=== PATIENT | female | born 1990 | race Caucasian/White ===

== ENCOUNTER 2019-05-13 19:00 | Emergency (ER) | payer MEDICAID, OTHER ==
[2019-05-13] MEDS ORDERED: Ketorolac 60 MG/2 ML SDV IM ONE (20:50)
--- NOTE | 2019-05-13 21:25 | EDM.PDOC ---
ED HPI GENERAL MEDICAL PROBLEM - General Chief Complaint: Lower Extremity Injury/Pain Stated Complaint: HURT ANKLE Time Seen by Provider: 05/13/19 19:40 Source of Information: Reports: Patient, Family History Limitations: Reports: No Limitations - History of Present Illness INITIAL COMMENTS - FREE TEXT/NARRATIVE: Patient presents today with concern for an ankle injury this afternoon. She was walking, caught her foot under her and it twisted and she fell on hard pavement. Unable to walk on it since that happened. No other injuries in her fall, doesn't really want to move her ankle much. Hasn't taken anything. Denies any numbness or tingling in her foot. Does not have any knee or upper leg pain. Previous history of a right ankle fracture which occurred when she was between ages of 10 and 12. Otherwise healthy with no regular medications Or medical problems. 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: Neurological History: Reports: Migraines Endocrine/Metabolic History: Reports: Other (See Below) Other Endocrine/Metabolic History: thyroid disorder, glaucoma, maculalar degeneration - Infectious Disease History Infectious Disease History: Reports: Chicken Pox - Past Surgical History HEENT Surgical History: Reports: Other (See Below) Social & Family History - Family History Family Medical History: Noncontributory HEENT: Reports: Cataract OBGYN: Reports: Endocrine/Metabolic: Reports: Diabetes, Type I - Tobacco Use Smoking Status *Q: Current Every Day Smoker - Caffeine Use Caffeine Use: Reports: Soda - Living Situation & Occupation Living situation: Reports: Alone Occupation: Disabled Review of Systems - Review of Systems Review Of Systems: ROS reveals no pertinent complaints other than HPI. ED EXAM, GENERAL - Physical Exam Exam: See Below Free Text/Narrative:: Gen.: Alert, pleasant no acute distress. An abrasion is noted to the anterior side of her left knee. Her left leg otherwise appears normal and her foot is normal. There is a slight abrasion noted on the lateral side of her right foot. Right ankle exam shows significant lateral swelling. Active ROM of toes and ankle is limited due to pain but present. There is no tenderness over the medial malleolus, but significant tender over the lateral malleolus. She does not have any laxity on anterior posterior drawer testing. There is no tenderness in the foot except very slight over the fifth metatarsal head. She has no tenderness with squeeze of tibia/fibula. dorsal pedis pulses present and sensation is intact throughout the foot. Course - Vital Signs Text/Narrative:: X-rays obtained, not clear view of the mortise and talar but no fracture seen by my read. Patient is neurovascularly intact with no ligamentous laxity. Requested official radiology read -- suspect arthritis from former ankle fracture is contributing. toradol ordered Last Recorded V/S: Last Vital Signs Temp 37.2 C 05/13/19 19:00 Pulse 88 05/13/19 19:00 Resp 18 05/13/19 19:00 BP 145/56 H 05/13/19 19:00 Pulse Ox 97 05/13/19 19:00 - Orders/Labs/Meds Orders: Active Orders 24 hr Category Date Time Status Ankle Min 3V Rt [CR] Stat Exams 05/13/19 19:30 Taken Foot Comp Min 3V Rt [CR] Stat Exams 05/13/19 20:00 Taken Meds: Medications Discontinued Medications Generic Name Dose Route Start Last Admin Trade Name Jonathanq PRN Reason Stop Dose Admin Ketorolac Tromethamine 60 mg 05/13/19 20:50 05/13/19 22:30 Toradol IM 05/13/19 20:51 60 mg ONETIME ONE Administration - Re-Assessments/Exams Free Text/Narrative Re-Assessment/Exam: 05/14/19 pain improved after Toradol. Requested official radiology read but has not returned yet. They are requesting discharge, she is very uncomfortable with any dorsiflexion, so Yoni wrap was given and crutches and patient instructed to be nonweightbearing for a couple of days to see if she improves. Note provided for work as well. Will call if official radiology read returns concern for fracture in am. Departure - Departure Time of Disposition: 22:58 Disposition: Home, Self-Care 01 Condition: Good Clinical Impression: Ankle sprain - Discharge Information *PRESCRIPTION DRUG MONITORING PROGRAM REVIEWED*: Not Applicable *COPY OF PRESCRIPTION DRUG MONITORING REPORT IN PATIENT JESSICA: Not Applicable Instructions: Crutch Use, Adult, [id number], Ankle Sprain Referrals: Jevon Wray MD [Primary Care Provider] - Forms: ED Department Discharge Additional Instructions: Recommend use crutches for next 2-3 days. On day 4 you may try to bear weight on it and see how it feels. Yoni wrap and elevate during the day, ice is very helpful May take ibuprofen 3-4 tabs up to 3 times a day. Drink lots of water with this medication. May also take Tylenol with this if needed for pain. If still unable to bear weight on day 4, should be seen in walk-in clinic or PCP office for follow-up. IF it is slowly improving but not all the way better, should also be seen in clinic. Physical therapy is often very helpful with recover from an ankle injury - My Orders Last 24 Hours: My Active Orders 05/13/19 19:30 Ankle Min 3V Rt [CR] Stat 05/13/19 20:00 Foot Comp Min 3V Rt [CR] Stat - Assessment/Plan Last 24 Hours: My Active Orders 05/13/19 19:30 Ankle Min 3V Rt [CR] Stat 05/13/19 20:00 Foot Comp Min 3V Rt [CR] Stat
[2019-05-14 04:41] VITALS: BP 126/68; PULSE 77
== END 2019-05-13 23:10 | disposition home or self-care (01) ==
LOC: FB.ED 19:00
DX: S93.401A Sprain of unspecified ligament of right ankle, initial encounter (principal); S80.212A Abrasion, left knee, initial encounter; S90.811A Abrasion, right foot, initial encounter; F17.200 Nicotine dependence, unspecified, uncomplicated; W18.39XA Other fall on same level, initial encounter
CPT/HCPCS: 73610; 73630; 99283; J1885

== ENCOUNTER 2020-07-26 15:27 | Emergency (ER) | payer MEDICAID ==
[2020-07-26] MEDS ORDERED: Sodium Chloride 0.9% 10 ML Syringe FLUSH PRN (15:30)
[2020-07-26] MEDS ORDERED: Morphine 2 MG/ML SYRINGE IVPUSH ONE (15:31)
[2020-07-26] MEDS ORDERED: Ondansetron 4 MG/2 ML SDV IVPUSH ONE (15:31)
[2020-07-26] MEDS ORDERED: Ketorolac 30 MG/ML SDV IVPUSH ONE (15:31)
[2020-07-26] MEDS ORDERED: Sodium Chloride 0.9% 1,000 ML IV SCH (15:45)
[2020-07-26] MEDS ORDERED: Iopamidol 755 Mg/ML 100 ML Bottle IV ONE (15:51)
--- NOTE | 2020-07-26 17:08 | EDM.PDOC ---
ED HPI GENERAL MEDICAL PROBLEM - General Chief Complaint: Flank Pain Stated Complaint: RT PLANK PAIN Time Seen by Provider: 07/26/20 15:30 Source of Information: Reports: Patient History Limitations: Reports: No Limitations - History of Present Illness INITIAL COMMENTS - FREE TEXT/NARRATIVE: Patient presented to the ED because of Rt Flank pain which started this morning. The pain is sharp,8/10, with associated nausea and vomiting x 5. She has a history of kidney stone which she passed spontaneously. 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 Neurological History: Reports: Migraines Endocrine/Metabolic History: Reports: Other (See Below) Other Endocrine/Metabolic History: thyroid disorder, glaucoma, maculalar degeneration - Infectious Disease History Infectious Disease History: Reports: Chicken Pox - Past Surgical History HEENT Surgical History: Reports: Other (See Below) Social & Family History - Family History Family Medical History: Noncontributory HEENT: Reports: Cataract OBGYN: Reports: Endocrine/Metabolic: Reports: Diabetes, Type I - Caffeine Use Caffeine Use: Reports: Soda - Living Situation & Occupation Living situation: Reports: Alone Occupation: Disabled ED ROS GENERAL - Review of Systems Review Of Systems: See Below Constitutional: Reports: No Symptoms HEENT: Reports: No Symptoms Respiratory: Reports: No Symptoms Cardiovascular: Reports: No Symptoms Endocrine: Reports: No Symptoms GI/Abdominal: Reports: No Symptoms : Reports: Flank Pain Musculoskeletal: Reports: No Symptoms Skin: Reports: No Symptoms Neurological: Reports: No Symptoms Psychiatric: Reports: No Symptoms ED EXAM, RENAL/ - Physical Exam Exam: See Below Exam Limited By: No Limitations General Appearance: Alert, No Apparent Distress Eye Exam: Bilateral Eye: PERRL Ears: Normal External Exam, Normal Canal Nose: Normal Inspection, Normal Mucosa Throat/Mouth: Normal Inspection, Normal Lips, Normal Teeth Head: Atraumatic, Normocephalic Neck: Normal Inspection, Supple, Non-Tender, Full Range of Motion Respiratory/Chest: No Respiratory Distress, Lungs Clear, Normal Breath Sounds Cardiovascular: Normal Peripheral Pulses, Regular Rate, Rhythm, No Edema, No G allop GI/Abdominal: Normal Bowel Sounds, Soft, No Organomegaly, Other (RCVAT) Back Exam: Normal Inspection, Full Range of Motion Extremities: Normal Inspection, Normal Range of Motion Course - Vital Signs Text/Narrative:: Labs/CT abd-pelvis result was discussed with patient NS 1 L bolus Zofran 4 mg IV x1 Toradol 30 mg IV x1 Morphine 2 mg IV x1 - Orders/Labs/Meds Orders: Active Orders 24 hr Category Date Time Status Sodium Chloride 0.9% [Normal Saline] 1,000 ml Med 07/26/20 15:45 Active IV ASDIRECTED Sodium Chloride 0.9% [Saline Flush] Med 07/26/20 15:30 Active 10 ml FLUSH ASDIRECTED PRN Saline Lock Insert [OM.PC] Routine Oth 07/26/20 15:30 Ordered Medication Orders Sodium Chloride (Normal Saline) 1,000 mls @ 999 mls/hr IV ASDIRECTED RUSLAN Last Admin: 07/26/20 16:20 Dose: 999 mls/hr Documented by: YOSELIN Sodium Chloride (Saline Flush) 10 ml FLUSH ASDIRECTED PRN PRN Reason: Keep Vein Open Last Admin: 07/26/20 16:15 Dose: 10 ml Documented by: YOSELIN Labs: Laboratory Tests 07/26/20 07/26/20 07/26/20 Range/Units 15:40 15:40 15:40 WBC 13.6 H (4.5-12.0) X10-3/uL RBC 4.73 (3.23-5.20) x10(6)uL Hgb 14.7 (11.5-15.5) g/dL Hct 42.6 D (30.0-51.3) % MCV 90.1 (80-96) fL MCH 31.1 (27.7-33.6) pg MCHC 34.6 (32.2-35.4) g/dL RDW 11.6 (11.5-15.5) % Plt Count 280 (125-369) X10(3)uL MPV 8.8 (7.4-10.4) fL Neut % (Auto) 84.1 H (46-82) % Lymph % (Auto) 10.7 L (13-37) % Sherman % (Auto) 3.4 L (4-12) % Eos % (Auto) 1 (1.0-5.0) % Baso % (Auto) 1 (0-2) % Neut # (Auto) 11.3 H (1.6-8.3) # Lymph # (Auto) 1.5 (0.6-5.0) # Sherman # (Auto) 0.5 (0.0-1.3) # Eos # (Auto) 0.1 (0.0-0.8) # Baso # (Auto) 0.2 (0.0-0.2) # Sodium 141 (135-145) mmol/L Potassium 4.2 (3.5-5.3) mmol/L Chloride 101 (100-110) mmol/L Carbon Dioxide 30 (21-32) mmol/L BUN 12 (7-18) mg/dL Creatinine 1.0 (0.55-1.02) mg/dL Est Cr Clr Drug Dosing TNP Estimated GFR (MDRD) > 60 (>60) BUN/Creatinine Ratio 12.0 (9-20) Glucose 138 H (80-116) mg/dL Calcium 9.5 (8.6-10.2) mg/dL Total Bilirubin 0.5 (0.1-1.3) mg/dL AST 41 H (5-25) IU/L ALT 54 H (12-36) U/L Alkaline Phosphatase 94 (56-112) IU/L Total Protein 7.5 (6.0-8.0) g/dL Albumin 4.0 (3.5-5.2) g/dL Globulin 3.5 g/dL Albumin/Globulin Ratio 1.1 Amylase 43 (25-115) U/L Lipase 83 (73-393) U/L Urine Color (YELLOW) Urine Appearance (CLEAR) Urine pH (5.0-6.5) Ur Specific [place] (1.010-1.025) Urine Protein (NEGATIVE) mg/dL Urine Glucose (UA) (NORMAL) mg/dL Urine Ketones (NEGATIVE) mg/dL Urine Occult Blood (NEGATIVE) Urine Nitrite (NEGATIVE) Urine Bilirubin (NEGATIVE) Urine Urobilinogen (NEGATIVE) mg/dL Ur Leukocyte Esterase (NEGATIVE) Urine RBC (0-5) Urine WBC (0-5) Ur Squamous Epith Cells (NS,R,O) Urine Bacteria (NS) 07/26/20 Range/Units 16:30 WBC (4.5-12.0) X10-3/uL RBC (3.23-5.20) x10(6)uL Hgb (11.5-15.5) g/dL Hct (30.0-51.3) % MCV (80-96) fL MCH (27.7-33.6) pg MCHC (32.2-35.4) g/dL RDW (11.5-15.5) % Plt Count (125-369) X10(3)uL MPV (7.4-10.4) fL Neut % (Auto) (46-82) % Lymph % (Auto) (13-37) % Sherman % (Auto) (4-12) % Eos % (Auto) (1.0-5.0) % Baso % (Auto) (0-2) % Neut # (Auto) (1.6-8.3) # Lymph # (Auto) (0.6-5.0) # Sherman # (Auto) (0.0-1.3) # Eos # (Auto) (0.0-0.8) # Baso # (Auto) (0.0-0.2) # Sodium (135-145) mmol/L Potassium (3.5-5.3) mmol/L Chloride (100-110) mmol/L Carbon Dioxide (21-32) mmol/L BUN (7-18) mg/dL Creatinine (0.55-1.02) mg/dL Est Cr Clr Drug Dosing Estimated GFR (MDRD) (>60) BUN/Creatinine Ratio (9-20) Glucose (80-116) mg/dL Calcium (8.6-10.2) mg/dL Total Bilirubin (0.1-1.3) mg/dL AST (5-25) IU/L ALT (12-36) U/L Alkaline Phosphatase (56-112) IU/L Total Protein (6.0-8.0) g/dL Albumin (3.5-5.2) g/dL Globulin g/dL Albumin/Globulin Ratio Amylase (25-115) U/L Lipase (73-393) U/L Urine Color Yellow (YELLOW) Urine Appearance Cloudy (CLEAR) Urine pH 5.0 (5.0-6.5) Ur Specific [place] 1.030 H (1.010-1.025) Urine Protein Trace (NEGATIVE) mg/dL Urine Glucose (UA) Normal (NORMAL) mg/dL Urine Ketones Negative (NEGATIVE) mg/dL Urine Occult Blood Large H (NEGATIVE) Urine Nitrite Negative (NEGATIVE) Urine Bilirubin Negative (NEGATIVE) Urine Urobilinogen Normal (NEGATIVE) mg/dL Ur Leukocyte Esterase Negative (NEGATIVE) Urine RBC 30-40 H (0-5) Urine WBC 0-5 (0-5) Ur Squamous Epith Cells Moderate H (NS,R,O) Urine Bacteria Moderate H (NS) Meds: Medications Generic Name Dose Route Start Last Admin Trade Name Freq PRN Reason Stop Dose Admin Sodium Chloride 1,000 mls @ 999 mls/hr 07/26/20 15:45 07/26/20 16:20 Normal Saline IV 999 mls/hr ASDIRECTED RUSLAN Administration Sodium Chloride 10 ml 07/26/20 15:30 07/26/20 16:15 Saline Flush FLUSH 10 ml ASDIRECTED PRN Administration Keep Vein Open Discontinued Medications Generic Name Dose Route Start Last Admin Trade Name Freq PRN Reason Stop Dose Admin Iopamidol 100 ml 07/26/20 15:51 Isovue-370 (76%) IV 07/26/20 15:52 . DIRECTED ONE Ketorolac Tromethamine 30 mg 07/26/20 15:31 07/26/20 16:23 Toradol IVPUSH 07/26/20 15:32 30 mg ONETIME ONE Administration Morphine Sulfate 2 mg 07/26/20 15:31 07/26/20 16:25 Morphine IVPUSH 07/26/20 15:32 2 mg ONETIME ONE Administration Ondansetron HCl 4 mg 07/26/20 15:31 07/26/20 16:20 Zofran IVPUSH 07/26/20 15:32 4 mg ONETIME ONE Administration Departure - Departure Time of Disposition: 17:10 Disposition: Home, Self-Care 01 Condition: Good Clinical Impression: Nephrolithiasis - Discharge Information Prescriptions: Tamsulosin HCl [Flomax] 0.4 mg PO DAILY #10 cap.er.24h Acetaminophen/HYDROcodone [[place] 325-5 MG] 1 tab PO Q4H PRN #15 tab PRN Reason: Pain Ondansetron [Zofran ODT] 4 mg PO Q4H PRN #7 tab.dis PRN Reason: Nausea Instructions: Kidney Stones, [id number] Referrals: Jevon Wray MD [Primary Care Provider] - Forms: ED Department Discharge Additional Instructions: Please read discharge instructions on kidney stones Increase oral fluids [place]/hydrocodone, take 1-2 tablets every 4-6 hours as needed for pain Flomax 1 tablet daily until gone Zofran ODT 4 mg every 4 hours as needed for nausea Follow up if symptoms persist - My Orders Last 24 Hours: My Active Orders 07/26/20 15:30 Sodium Chloride 0.9% [Saline Flush] 10 ml FLUSH ASDIRECTED PRN Saline Lock Insert [OM.PC] Routine 07/26/20 15:45 Sodium Chloride 0.9% [Normal Saline] 1,000 ml IV ASDIRECTED - Assessment/Plan Last 24 Hours: My Active Orders 07/26/20 15:30 Sodium Chloride 0.9% [Saline Flush] 10 ml FLUSH ASDIRECTED PRN Saline Lock Insert [OM.PC] Routine 07/26/20 15:45 Sodium Chloride 0.9% [Normal Saline] 1,000 ml IV ASDIRECTED
--- NOTE | 2020-07-26 17:17 | CT ---
INDICATION: Right-sided abdominal pain. CT ABDOMEN AND PELVIS WITHOUT CONTRAST: Spiral 2.5 mm axial sections were obtained through the abdomen and pelvis without contrast with sagittal and coronal reconstructions 07/26/20 - no comparisons. Total exam DLP was 2112.62 mGy-cm. The low lung mars and pleural spaces visualized appeared normal. The heart did not appear grossly enlarged. No pericardial effusion was seen. The gallbladder is absent, compatible with history of its removal with clips at the cystic duct. The spleen is enlarged measuring 145 x 85 x 152 mm. The liver appears grossly normal. The pancreas appears grossly normal. Common bile duct was normal in caliber in the head of the pancreas - no intrahepatic ductal dilatation was seen. The adrenal glands appeared normal. The left kidney was unremarkable. On the right, there is a tiny calculus in a lower pole elyse and there is hydronephrosis including pyelocaliectasis and ureterectasis with the ureterectasis extending down to the distal-most ureter just above the urinary bladder where a 2.5 x 3.6 mm calculus is present, producing moderate degree of obstructive uropathy of the right kidney. No retroperitoneal mass was seen. The appendix was normal and well visualized on coronal images 51-59. No evidence of free air or bowel obstruction was identified. There is a ventral hernia with a large opening of approximately 33 mm including only fat. It measured approximately 57 mm x 63 mm in AP and transverse diameters. An intrauterine device is noted in place within the uterus and appears to be in satisfactory position. The ovaries were visualized and appeared relatively prominent on the right measuring 3.8 x 4.5 cm and measuring 1.7 x 3.1 cm on the left. A definite mass of the ovary was not identified. With this discrepancy in size, it may be warranted to obtain a pelvic ultrasound for further evaluation of the ovaries - correlate clinically. No additional organomegaly, mass lesions or free fluid collections were identified in the abdomen or pelvis. IMPRESSION: 1. Obstructive uropathy on the right due to a distal ureteral calculus about 2 cm from the ureterovesical junction. A moderate degree of obstructive uropathy is present on the right. 2. Intrauterine device in place. 3. Prominent right ovary compared with the left - ultrasound may be warranted depending upon clinical correlation for confirmation of etiology. 4. Ventral hernia with large opening and including only fat. 5. Postcholecystectomy. 6. Minimal renal calcinosis on the right. 7. Splenomegaly. Report was called to Dr. Camacho at 1659 hours. [facility]
[2020-07-26 19:59] VITALS: BP 139/70; PULSE 59
== END 2020-07-26 17:40 | disposition home or self-care (01) ==
LOC: FB.ED 15:27
DX: N13.2 Hydronephrosis with renal and ureteral calculous obstruction (principal); Z79.899 Other long term (current) drug therapy
CPT/HCPCS: 36415; 74176; 80053; 81001; 82150; 83690; 85025; 96374; 96375; 99284; J1885; J2270; J2405; J7030

== ENCOUNTER 2020-11-28 19:30 | Emergency (ER) | payer MEDICAID ==
[2020-11-28] MEDS ORDERED: Ketorolac 30 MG/ML SDV IVPUSH ONE (19:41)
[2020-11-28] MEDS ORDERED: Ondansetron 4 MG/2 ML SDV IVPUSH ONE (19:41)
[2020-11-28] MEDS ORDERED: Sodium Chloride 0.9% 1,000 ML IV SCH (19:45)
--- NOTE | 2020-11-28 21:12 | EDM.PDOC ---
ED HPI GENERAL MEDICAL PROBLEM - General Chief Complaint: Genitourinary Problem Stated Complaint: POSSIBLE KIDNEY STONE Time Seen by Provider: 11/28/20 21:07 Source of Information: Reports: Patient History Limitations: Reports: No Limitations - History of Present Illness INITIAL COMMENTS - FREE TEXT/NARRATIVE: Left flank pain x a few hours.Feels like a previous Kidney stone.Hydrocodone helped a little Also has dysuria,but no fever. 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 Neurological History: Reports: Migraines Endocrine/Metabolic History: Reports: Other (See Below) Other Endocrine/Metabolic History: thyroid disorder, glaucoma, maculalar degeneration - Infectious Disease History Infectious Disease History: Reports: Chicken Pox - Past Surgical History HEENT Surgical History: Reports: Other (See Below) Other HEENT Surgeries/Procedures: strabismus surgery GI Surgical History: Reports: Cholecystectomy Social & Family History - Family History Family Medical History: No Pertinent Family History HEENT: Reports: Cataract OBGYN: Reports: Endocrine/Metabolic: Reports: Diabetes, Type I - Tobacco Use Tobacco Use Status *Q: Never Tobacco User Second Hand Smoke Exposure: Yes - Caffeine Use Caffeine Use: Reports: Soda, Tea - Recreational Drug Use Recreational Drug Use: No - Living Situation & Occupation Living situation: Reports: Alone Occupation: Disabled ED ROS GENERAL - Review of Systems Review Of Systems: Comprehensive ROS is negative, except as noted in HPI. ED EXAM, RENAL/ - Physical Exam Exam: See Below Exam Limited By: No Limitations General Appearance: Alert, WD/WN, No Apparent Distress Ears: Normal External Exam Nose: Normal Inspection Throat/Mouth: Normal Inspection Course - Vital Signs Last Recorded V/S: Last Vital Signs Temp 98.4 F 11/28/20 19:30 Pulse 86 11/28/20 19:30 Resp 16 11/28/20 19:30 BP 129/76 11/28/20 19:30 Pulse Ox 98 11/28/20 19:30 - Orders/Labs/Meds Orders: Active Orders 24 hr Category Date Time Status Abdomen Pelvis wo Cont [CT] Stat Exams 11/28/20 19:58 Ordered Sodium Chloride 0.9% [Normal Saline] 1,000 ml Med 11/28/20 19:45 Active IV ASDIRECTED Medication Orders Sodium Chloride (Normal Saline) 1,000 mls @ 999 mls/hr IV ASDIRECTED RUSLAN Last Admin: 11/28/20 19:50 Dose: 999 mls/hr Documented by: EDI Labs: Laboratory Tests 11/28/20 11/28/20 11/28/20 Range/Units 19:40 19:55 19:55 WBC 13.6 H (3.0-10.3) x10-3/uL RBC 4.50 (3.60-5.20) x10(6)uL Hgb 13.4 (11.4-15.5) g/dL Hct 41.0 (34.2-48.2) % MCV 91.2 (76.7-100.5) fL MCH 29.9 (23.9-33.9) pg MCHC 32.8 (31.9-34.8) g/dL RDW 12.1 L (12.3-16.5) % Plt Count 224 (151-488) x10(3)uL MPV 10.0 (7.1-12.4) fL Neut % (Auto) 77.2 H (30.8-76.2) % Lymph % (Auto) 13.6 L (18.4-52.1) % [place] % (Auto) 7.7 (4.4-15.7) % Eos % (Auto) 0.8 (0.6-8.1) % Baso % (Auto) 0.7 (0.2-1.5) % Neut # (Auto) 10.5 H (1.5-6.3) x10-3/uL Lymph # (Auto) 1.9 (1.0-4.4) x10-3/uL [place] # (Auto) 1.0 (0.3-1.0) x10-3/uL Eos # (Auto) 0.1 (0.0-0.8) x10-3/uL Baso # (Auto) 0.1 (0.0-0.1) x10-3/uL Sodium 139 (135-145) mmol/L Potassium 3.9 (3.5-5.3) mmol/L Chloride 100 (100-110) mmol/L Carbon Dioxide 30 (21-32) mmol/L BUN 15 (7-18) mg/dL Creatinine 1.1 H (0.55-1.02) mg/dL Est Cr Clr Drug Dosing 71.40 mL/min Estimated GFR (MDRD) 58 L (>60) BUN/Creatinine Ratio 13.6 (9-20) Glucose 134 H (80-116) mg/dL Calcium 9.3 (8.6-10.2) mg/dL Urine Color Yellow (YELLOW) Urine Appearance Slightly cloudy (CLEAR) Urine pH 5.0 (5.0-6.5) Ur Specific [place] 1.025 (1.010-1.025) Urine Protein 30 H (NEGATIVE) mg/dL Urine Glucose (UA) Normal (NORMAL) mg/dL Urine Ketones 15 H (NEGATIVE) mg/dL Urine Occult Blood Large H (NEGATIVE) Urine Nitrite Negative (NEGATIVE) Urine Bilirubin Small H (NEGATIVE) Urine Urobilinogen 1 H (NEGATIVE) mg/dL Ur Leukocyte Esterase Small H (NEGATIVE) Urine RBC 10-20 H (0-5) Urine WBC 5-10 H (0-5) Ur Squamous Epith Cells Moderate H (NS,R,O) Urine Bacteria Few H (NS) Urine Yeast Moderate H (NS) Meds: Medications Generic Name Dose Route Start Last Admin Trade Name Freq PRN Reason Stop Dose Admin Sodium Chloride 1,000 mls @ 999 mls/hr 11/28/20 19:45 11/28/20 19:50 Normal Saline IV 999 mls/hr ASDIRECTED RUSLAN Administration Discontinued Medications Generic Name Dose Route Start Last Admin Trade Name Freq PRN Reason Stop Dose Admin Ketorolac Tromethamine 30 mg 11/28/20 19:41 11/28/20 19:59 Toradol IVPUSH 11/28/20 19:42 30 mg ONETIME ONE Administration Ondansetron HCl 8 mg 11/28/20 19:41 11/28/20 20:00 Zofran IVPUSH 11/28/20 19:42 8 mg ONETIME ONE Administration Departure - Departure Time of Disposition: 21:08 Disposition: Home, Self-Care 01 Condition: Good Clinical Impression: Nephrolithiasis - Discharge Information Referrals: Jevon Wray MD [Primary Care Provider] - Sepsis Event Note (ED) - Evaluation Sepsis Screening Result: No Definite Risk - Focused Exam Vital Signs: Vital Signs Temp Pulse Resp BP Pulse Ox 11/28/20 19:30 98.4 F 86 16 129/76 98 - Problem List & Annotations (1) UTI (urinary tract infection) SNOMED Code(s): 63050326 Code(s): N39.0 - URINARY TRACT INFECTION, SITE NOT SPECIFIED Status: Acute Current Visit: Yes Qualifiers: Urinary tract infection type: acute cystitis Hematuria presence: with hematuria Qualified Code(s): N30.01 - Acute cystitis with hematuria (2) Nephrolithiasis SNOMED Code(s): 19818539 Code(s): N20.0 - CALCULUS OF KIDNEY Status: Acute Current Visit: Yes - Problem List Review Problem List Initiated/Reviewed/Updated: Yes - My Orders Last 24 Hours: My Active Orders 11/28/20 19:45 Sodium Chloride 0.9% [Normal Saline] 1,000 ml IV ASDIRECTED 11/28/20 19:58 Abdomen Pelvis wo Cont [CT] Stat - Assessment/Plan Last 24 Hours: My Active Orders 11/28/20 19:45 Sodium Chloride 0.9% [Normal Saline] 1,000 ml IV ASDIRECTED 11/28/20 19:58 Abdomen Pelvis wo Cont [CT] Stat Plan: CT showed a 4 mm with mild hydronephrosis. I gave her NS 1L,Toradol and Zofran. Symptoms improved. Will send her home on [place] and Cipro.See Dr Wray tomorrow
[2020-11-28] MEDS ORDERED: Ciprofloxacin 500 MG Tab PO ONE (21:19)
[2020-11-28] MEDS ORDERED: Acetaminophen/HYDROcodone 325-5 MG Tab PO ONE (21:19)
[2020-11-28 21:52] VITALS: BP 139/70; PULSE 73
== END 2020-11-28 21:40 | disposition home or self-care (01) ==
LOC: FB.ED 19:30
DX: N13.2 Hydronephrosis with renal and ureteral calculous obstruction (principal); Z77.22 Contact with and (suspected) exposure to environmental tobacco smoke (acute) (chronic)
CPT/HCPCS: 36415; 74176; 80048; 81001; 85025; 96374; 96375; 99284-25; A9270-GY; J1885; J2405; J7030

== ENCOUNTER 2021-05-05 16:35 | Emergency (ER) | payer MEDICAID ==
[2021-05-05] MEDS ORDERED: Alum Hydroxide/Mag Hydroxide 30 ML, Lidocaine 2% 15 ML PO ONE ×2 (17:18)
[2021-05-05] MEDS ORDERED: Sodium Chloride 0.9% 1,000 ML IV ONE (17:18)
[2021-05-05] MEDS ORDERED: Ketorolac 30 MG/ML SDV IVPUSH ONE (17:18)
--- NOTE | 2021-05-05 17:26 | EDM.PDOC ---
ED HPI GENERAL MEDICAL PROBLEM - General Chief Complaint: Abdominal Pain Stated Complaint: STOMACH PAIN/DIZZY Time Seen by Provider: 05/05/21 16:50 Source of Information: Reports: Patient History Limitations: Reports: No Limitations - History of Present Illness INITIAL COMMENTS - FREE TEXT/NARRATIVE: c/o epigastric pain x 3h pt lives with and 3 children, awoke at 9:50a, ate fries for bfast, felt okay, began work at [employer] at 10:30 had onset of epigastric sharp/burn pain at 1p, sometimes would stand still to decrease the pain, some pain in RUQ, most pain in epigastrium no alcohol, no similar pain in past had choly 12-13 years ago, no other abd surgery had renal colic 2y ago with pain in L flank around to back no pain in mid abd/flanks/lower abd has IUD, has had some bleeding no n/v, no f/c/d Abdomen Pain Score (Numeric/FACES): 10 - Related Data Allergies Allergy/AdvReac Type Severity Reaction Status Date / Time No Known Allergies Allergy Verified 05/05/21 17:02 Home Meds: Home Meds Acetaminophen/HYDROcodone [[place] 325-5 MG] 1 tab PO Q4H PRN #15 tab 07/26/20 [Rx] Omeprazole 20 mg PO DAILY #20 tablet. 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 Neurological History: Reports: Migraines Endocrine/Metabolic History: Reports: Other (See Below) Other Endocrine/Metabolic History: thyroid disorder, glaucoma, maculalar degeneration - Infectious Disease History Infectious Disease History: Reports: Chicken Pox - Past Surgical History HEENT Surgical History: Reports: Other (See Below) Other HEENT Surgeries/Procedures: strabismus surgery GI Surgical History: Reports: Cholecystectomy Social & Family History - Family History Family Medical History: No Pertinent Family History HEENT: Reports: Cataract OBGYN: Reports: Endocrine/Metabolic: Reports: Diabetes, Type I - Caffeine Use Caffeine Use: Reports: Soda, Tea - Living Situation & Occupation Living situation: Reports: Alone Occupation: Disabled ED ROS GENERAL - Review of Systems Review Of Systems: See Below Constitutional: Reports: No Symptoms HEENT: Reports: No Symptoms Respiratory: Reports: No Symptoms Cardiovascular: Reports: No Symptoms Endocrine: Reports: No Symptoms GI/Abdominal: Reports: Abdominal Pain. Denies: Constipation, Diarrhea, Nausea, Vomiting : Reports: No Symptoms Musculoskeletal: Reports: No Symptoms Skin: Reports: No Symptoms Neurological: Reports: No Symptoms Psychiatric: Reports: No Symptoms Hematologic/Lymphatic: Reports: No Symptoms Immunologic: Reports: No Symptoms ED EXAM, GI/ABD - Physical Exam Exam: See Below Exam Limited By: No Limitations General Appearance: Alert, WD/WN, Other (lying on R side, alert, conversant, normal speech, nonill, mildly uncomfortable) Ears: Hearing Grossly Normal Nose: Normal Inspection Throat/Mouth: Normal Voice, No Airway Compromise Head: Atraumatic, Normocephalic Respiratory/Chest: No Respiratory Distress, Lungs Clear, Normal Breath Sounds, No Accessory Muscle Use, Chest Non-Tender Cardiovascular: Regular Rate, Rhythm, No Edema, No JVD, No Murmur GI/Abdominal Exam: Normal Bowel Sounds, Soft, No Distention, Other (1+ tender at Moura's point, 1-2+ tender at epigastrium and to left of epigastrium, nontender at central/flanks/lower, no CVAT) Back Exam: Normal Inspection, Full Range of Motion. No: CVA Tenderness (R), CVA Tenderness (L) Extremities: Normal Inspection, Non-Tender, No Pedal Edema Neurological: Alert, Oriented, CN II-XII Intact, Normal Cognition, No Motor/Sensory Deficits Psychiatric: Normal Affect, Normal Mood Skin Exam: Warm, Dry, Intact, Normal Color, No Rash Lymphatic: No Adenopathy Course - Vital Signs Last Recorded V/S: Last Vital Signs Temp 36.6 C 05/05/21 16:35 Pulse 82 05/05/21 16:35 Resp 18 05/05/21 16:35 BP 134/76 05/05/21 16:35 Pulse Ox 97 05/05/21 16:35 - Orders/Labs/Meds Labs: Laboratory Tests 05/05/21 05/05/21 05/05/21 Range/Units 16:50 16:50 17:30 WBC 8.0 (3.0-10.3) x10-3/uL RBC 4.29 (3.60-5.20) x10(6)uL Hgb 12.8 (11.4-15.5) g/dL Hct 38.3 (34.2-48.2) % MCV 89.3 (76.7-100.5) fL MCH 29.9 (23.9-33.9) pg MCHC 33.5 (31.9-34.8) g/dL RDW 12.0 L (12.3-16.5) % Plt Count 236 (151-488) x10(3)uL MPV 8.7 (7.1-12.4) fL Neut % (Auto) 62.3 (30.8-76.2) % Lymph % (Auto) 26.6 (18.4-52.1) % [place] % (Auto) 7.5 (4.4-15.7) % Eos % (Auto) 2.3 (0.6-8.1) % Baso % (Auto) 1.3 (0.2-1.5) % Neut # (Auto) 5.0 (1.5-6.3) x10-3/uL Lymph # (Auto) 2.1 (1.0-4.4) x10-3/uL [place] # (Auto) 0.6 (0.3-1.0) x10-3/uL Eos # (Auto) 0.2 (0.0-0.8) x10-3/uL Baso # (Auto) 0.1 (0.0-0.1) x10-3/uL Sodium (135-145) mmol/L Potassium (3.5-5.3) mmol/L Chloride (100-110) mmol/L Carbon Dioxide (21-32) mmol/L BUN (7-18) mg/dL Creatinine (0.55-1.02) mg/dL Est Cr Clr Drug Dosing mL/min Estimated GFR (MDRD) (>60) BUN/Creatinine Ratio (9-20) Glucose (80-116) mg/dL Calcium (8.6-10.2) mg/dL Total Bilirubin (0.1-1.3) mg/dL AST (5-25) IU/L ALT (12-36) U/L Alkaline Phosphatase (56-112) IU/L C-Reactive Protein (0.5-0.9) mg/dL Total Protein (6.0-8.0) g/dL Albumin (3.5-5.2) g/dL Globulin g/dL Albumin/Globulin Ratio Lipase (73-393) U/L Urine Color Yellow (YELLOW) Urine Appearance Slightly cloudy (CLEAR) Urine pH 5.0 (5.0-6.5) Ur Specific [place] 1.030 H (1.010-1.025) Urine Protein Negative (NEGATIVE) mg/dL Urine Glucose (UA) Normal (NORMAL) mg/dL Urine Ketones 15 H (NEGATIVE) mg/dL Urine Occult Blood Negative (NEGATIVE) Urine Nitrite Negative (NEGATIVE) Urine Bilirubin Negative (NEGATIVE) Urine Urobilinogen Normal (NEGATIVE) mg/dL Ur Leukocyte Esterase Small H (NEGATIVE) Urine RBC 0-5 (0-5) Urine WBC 0-5 (0-5) Ur Squamous Epith Cells Moderate H (NS,R,O) Urine Bacteria Few H (NS) Urine HCG, Qual Negative (NEGATIVE) 05/05/21 05/05/21 Range/Units 17:30 17:30 WBC (3.0-10.3) x10-3/uL RBC (3.60-5.20) x10(6)uL Hgb (11.4-15.5) g/dL Hct (34.2-48.2) % MCV (76.7-100.5) fL MCH (23.9-33.9) pg MCHC (31.9-34.8) g/dL RDW (12.3-16.5) % Plt Count (151-488) x10(3)uL MPV (7.1-12.4) fL Neut % (Auto) (30.8-76.2) % Lymph % (Auto) (18.4-52.1) % [place] % (Auto) (4.4-15.7) % Eos % (Auto) (0.6-8.1) % Baso % (Auto) (0.2-1.5) % Neut # (Auto) (1.5-6.3) x10-3/uL Lymph # (Auto) (1.0-4.4) x10-3/uL [place] # (Auto) (0.3-1.0) x10-3/uL Eos # (Auto) (0.0-0.8) x10-3/uL Baso # (Auto) (0.0-0.1) x10-3/uL Sodium 142 (135-145) mmol/L Potassium 3.8 (3.5-5.3) mmol/L Chloride 105 D (100-110) mmol/L Carbon Dioxide 28 (21-32) mmol/L BUN 12 (7-18) mg/dL Creatinine 1.0 (0.55-1.02) mg/dL Est Cr Clr Drug Dosing 78.54 mL/min Estimated GFR (MDRD) > 60 (>60) BUN/Creatinine Ratio 12.0 (9-20) Glucose 96 (80-116) mg/dL Calcium 9.1 (8.6-10.2) mg/dL Total Bilirubin 0.5 (0.1-1.3) mg/dL AST 20 D (5-25) IU/L ALT 32 D (12-36) U/L Alkaline Phosphatase 90 (56-112) IU/L C-Reactive Protein 0.5 (0.5-0.9) mg/dL Total Protein 6.9 (6.0-8.0) g/dL Albumin 3.8 (3.5-5.2) g/dL Globulin 3.1 g/dL Albumin/Globulin Ratio 1.2 Lipase 80 (73-393) U/L Urine Color (YELLOW) Urine Appearance (CLEAR) Urine pH (5.0-6.5) Ur Specific [place] (1.010-1.025) Urine Protein (NEGATIVE) mg/dL Urine Glucose (UA) (NORMAL) mg/dL Urine Ketones (NEGATIVE) mg/dL Urine Occult Blood (NEGATIVE) Urine Nitrite (NEGATIVE) Urine Bilirubin (NEGATIVE) Urine Urobilinogen (NEGATIVE) mg/dL Ur Leukocyte Esterase (NEGATIVE) Urine RBC (0-5) Urine WBC (0-5) Ur Squamous Epith Cells (NS,R,O) Urine Bacteria (NS) Urine HCG, Qual (NEGATIVE) Meds: Medications Discontinued Medications Generic Name Dose Route Start Last Admin Trade Name Freq PRN Reason Stop Dose Admin Al Hydroxide/Mg Hydroxide 30 0 ml 05/05/21 17:18 05/05/21 17:26 ml/ Lidocaine HCl 15 ml PO 05/05/21 17:19 30 ml ONETIME ONE Administration Sodium Chloride 1,000 mls @ 999 mls/hr 05/05/21 17:18 05/05/21 17:25 Normal Saline IV 05/05/21 18:18 999 mls/hr .BOLUS ONE Administration Ketorolac Tromethamine 30 mg 05/05/21 17:18 05/05/21 17:25 Ketorolac 30 Mg/Ml Sdv IVPUSH 05/05/21 17:19 30 mg ONETIME ONE Administration - Re-Assessments/Exams Free Text/Narrative Re-Assessment/Exam: 05/05/21 18:39 labs neg except concentrated urine abd very soft with minimal epigastric tender at d/c, feeling much better no lab/PE evidence of choledocholithiasis, no evidence of colitis Departure - Departure Time of Disposition: 18:34 Disposition: Home, Self-Care 01 Condition: Good Clinical Impression: GERD (gastroesophageal reflux disease), Dehydration - Discharge Information *PRESCRIPTION DRUG MONITORING PROGRAM REVIEWED*: Not Applicable *COPY OF PRESCRIPTION DRUG MONITORING REPORT IN PATIENT JESSICA: Not Applicable Prescriptions: Omeprazole 20 mg PO DAILY #20 tablet.dr Instructions: Food Choices for Gastroesophageal Reflux Disease, Adult, Gastroesophageal Reflux Disease, Adult Forms: ED Department Discharge Additional Instructions: To decrease acid production, take omeprazole 20 mg 1 tab daily for 20 days. To neutralize acid, take a liquid antacids (such as Maalox or Mylanta) 30 ml every 4 hours as needed. Avoid fatty foods. For pain, take ibuprofen 200 mg 3 tabs every 6 hours as needed. For pain and cramping, take diphenhydramine (Benadryl) 25 mg every 6 hours as needed. Do not skip meals. Do not overeat. See your doctor in 2-3 days for further recommendations. Sepsis Event Note (ED) - Evaluation Sepsis Screening Result: No Definite Risk - Focused Exam Vital Signs: Vital Signs Temp Pulse Resp BP Pulse Ox 05/05/21 16:35 36.6 C 82 18 134/76 97
[2021-05-05] MEDS ORDERED: diphenhydrAMINE 50 MG/ML SDV IVPUSH ONE (18:37)
[2021-05-05] MEDS ORDERED: Pantoprazole 40 MG Tab.CR PO SCH (18:45)
[2021-05-05 20:30] VITALS: BP 136/74; PULSE 72
[2021-05-06] MEDS ORDERED: Pantoprazole 40 MG Tab.CR PO ONE (18:36)
== END 2021-05-05 19:15 | disposition home or self-care (01) ==
LOC: FB.ED 16:35
DX: K21.9 Gastro-esophageal reflux disease without esophagitis (principal); E86.0 Dehydration; Z79.899 Other long term (current) drug therapy
CPT/HCPCS: 36415; 80053; 81001; 81025; 83690; 85025; 86140; 96374; 96375; 99284; A9270; J1200; J1885; J7030

== ENCOUNTER 2021-09-08 12:19 | Emergency (ER) | payer MEDICAID ==
[2021-09-08 12:35] VITALS: BP 130/71; PULSE 78
--- NOTE | 2021-09-08 13:09 | EDM.PDOC ---
ED HPI GENERAL MEDICAL PROBLEM - General Chief Complaint: Lower Extremity Injury/Pain Stated Complaint: toe injury Time Seen by Provider: 09/08/21 13:03 Source of Information: Reports: Patient History Limitations: Reports: No Limitations - History of Present Illness INITIAL COMMENTS - FREE TEXT/NARRATIVE: 30-year-old female who reports at approximate 5 AM today she dropped an e lectronic notebook tablet on her right great toe from about waist height and she had immediate pain in the right great toe. There was some bleeding from the cuticle area of the nail and a Band-Aid was applied to this area and the bleeding has stopped. She reports continued pain in the right great toe since that time and she was unable to put she was on because of the pain. It is a sharp and throbbing type pain that she rates as a 5/10 now but it is worse when she tries to move the toe, walk on the foot or when she tries to put shoes on. There were no other injuries. There are no other associated signs or symptoms. There are no other modifying factors. 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 Musculoskeletal History: Reports: Fracture Other Musculoskeletal History: History of fracture to right hand and sprain to one finger on right. Neurological History: Reports: Migraines Endocrine/Metabolic History: Reports: Obesity/BMI 30+, Other (See Below) Other Endocrine/Metabolic History: thyroid disorder - Infectious Disease History Infectious Disease History: Reports: Chicken Pox - Past Surgical History HEENT Surgical History: Reports: Other (See Below) Other HEENT Surgeries/Procedures: strabismus surgery GI Surgical History: Reports: Cholecystectomy, Hernia, Abdominal (Umbilical) Social & Family History - Family History HEENT: Reports: Cataract OBGYN: Reports: Endocrine/Metabolic: Reports: Diabetes, Type I - Tobacco Use Tobacco Use Status *Q: Unknown Ever Used Tobacco (Nonsmoker.) - Caffeine Use Caffeine Use: Reports: Soda - Alcohol Use Alcohol Use History: No - Living Situation & Occupation Living situation: Reports: Occupation: Employed (Works at [employer]) Review of Systems - Review of Systems Review Of Systems: See Below Constitutional: Denies: Chills, Fever Eyes: Denies: Pain, Vision Change Ears: Denies: Dizziness, Pain Nose: Denies: Congestion, Pain Mouth/Throat: Denies: Bleeding, Pain Respiratory: Denies: Shortness of Breath, Cough Cardiovascular: Denies: Chest Pain, Lightheadedness GI/Abdominal: Denies: Nausea, Vomiting Genitourinary: Denies: Dysuria, Hematuria Musculoskeletal: Reports: Foot Pain (Right great toe pain). Denies: Arm Pain, Back Pain Skin: Reports: Wound (At cuticle of right great toe.). Denies: Rash Neurological: Denies: Dizziness, Headache ED EXAM, GENERAL - Physical Exam Exam: See Below Exam Limited By: No Limitations General Appearance: Alert, No Apparent Distress, Obese, Other (Nontoxic.) Eye Exam: Bilateral Eye: EOMI, Normal Inspection, PERRL Ears: Normal External Exam, Hearing Grossly Normal Ear Exam: Bilateral Ear: Auricle Normal Nose: Normal Inspection, Normal Mucosa, No Blood Throat/Mouth: Normal Oropharynx, Normal Voice, No Airway Compromise Head: Atraumatic, Normocephalic Neck: Normal Inspection, Supple, Non-Tender, Full Range of Motion Respiratory/Chest: No Respiratory Distress, Lungs Clear, Normal Breath Sounds, No Accessory Muscle Use Cardiovascular: Normal Peripheral Pulses, Regular Rate, Rhythm, No Murmur Peripheral Pulses: 2+: Radial (L), Radial (R), Dorsalis Pedis (L), Dorsalis Pedis (R) GI/Abdominal: Normal Bowel Sounds, Soft, Non-Tender Back Exam: Normal Inspection Extremities: No Pedal Edema, Normal Capillary Refill, Other (Tender over right great toe to the DP joint area. Non-bleeding wound at the cuticle of the right great toe. No nail deformity.) Neurological: Alert, Oriented, CN II-XII Intact, No Motor/Sensory Deficits Psychiatric: Normal Affect Skin Exam: Warm, Dry, Normal Color, No Rash Course - Vital Signs Last Recorded V/S: Last Vital Signs Temp 36.5 C 09/08/21 12:19 Pulse 78 09/08/21 12:19 Resp 18 09/08/21 12:19 BP 130/71 09/08/21 12:19 Pulse Ox 98 09/08/21 12:19 - Orders/Labs/Meds Orders: Active Orders 24 hr Category Date Time Status Toes Great Toe Rt T5 [CR] Stat Exams 09/08/21 13:13 Taken Meds: Medications Discontinued Medications Generic Name Dose Route Start Last Admin Trade Name Freq PRN Reason Stop Dose Admin Diphtheria/Tetanus/Acell Pertussis 0.5 ml 09/08/21 13:16 09/08/21 13:24 Diphtheria,Pertussis(Acell),Tetanus Vaccine 0.5 Ml Syringe IM 09/08/21 13:17 0.5 ml .ONCE ONE Administration - Radiology Interpretation Free Text/Narrative:: X-ray of right great toe shows tuft fracture that is nondisplaced per my read. - Re-Assessments/Exams Free Text/Narrative Re-Assessment/Exam: 09/08/21 14:37: The x-ray of the right great toe does show a tuft fracture. There is no fracture in the MTP joint area. We will treat this with jasmeet taping the great toe to the second toe of the right foot. She should use (issues until she can tolerate wearing closed shoes. She should ambulate as tolerated. She can use ibuprofen and Tylenol for pain as needed. Departure - Departure Time of Disposition: 15:05 Disposition: Home, Self-Care 01 Condition: Good Clinical Impression: Fracture of great toe of right foot Qualifiers: Encounter type: initial encounter Fracture type: closed Phalanx: distal Fracture alignment: nondisplaced Qualified Code(s): S92.424A - Nondisplaced fracture of distal phalanx of right great toe, initial encounter for closed fracture - Discharge Information Instructions: Toe Fracture, [id number] Referrals: Darlin Fonseca NP [Primary Care Provider] - Forms: ED Department Discharge, ED Return to Work/School Form Additional Instructions: You have a fracture of the tip of your right great toe. I don't see any fracture or abnormality over the beginning part of the right great toe where you are having some pain we will have you take your right great toe and the second toe together and use with a shoes until you can tolerate a closed shoe ambulation as tolerated. Take ibuprofen and Tylenol for the pain as needed. Back to the emergency department for marked increase in pain, redness spreading into the foot any other concerning sign or symptom. - My Orders Last 24 Hours: My Active Orders 09/08/21 13:13 Toes Great Toe Rt T5 [CR] Stat - Assessment/Plan Last 24 Hours: My Active Orders 09/08/21 13:13 Toes Great Toe Rt T5 [CR] Stat
[2021-09-08] MEDS ORDERED: Diphtheria,Pertussis(Acell),Tetanus Vaccine 0.5 ML Syringe IM ONE (13:16)
--- NOTE | 2021-09-09 12:07 | CR ---
INDICATION: Dropped object on right great toe. RIGHT GREAT TOE: Three views of the right great toe revealed linear lucencies in the shaft and possibly extending into the ungual tuft of the distal phalanx of the great toe, raising significant suspicion for hairline fracture lines in those areas. No displaced fracture sites or other significant bone or joint abnormality could be identified. MTDD
== END 2021-09-08 15:05 | disposition home or self-care (01) ==
LOC: FB.ED 12:19
DX: S92.424A Nondisplaced fracture of distal phalanx of right great toe, initial encounter for closed fracture (principal); E66.9 Obesity, unspecified; Z23 Encounter for immunization; W20.8XXA Other cause of strike by thrown, projected or falling object, initial encounter
CPT/HCPCS: 73660-T5; 90471; 90715; 99283-25